=== PATIENT | male | born 1980 | race Caucasian/White ===

== ENCOUNTER 2020-11-10 01:55 | Emergency (ER) | payer BC, OTHER, SELFPAY ==
[~2020-11-10] VITALS: Ht 152.4 cm; Wt 55.0 kg
--- NOTE | 2020-11-10 02:12 | NUR ---
pt was drinking at bar and fell from bar stool and hit head on floor. pt was given cpr by friends for 2-3 seconds when pt awoke. pt has small 2 cm lac to back of head. pt denied any pain. PT A/OX4 BUT SLOW TO RESPOND WITH THE SMELL OF ETOH.
--- NOTE | 2020-11-10 03:26 | NUR ---
PT SLEEPING IN BED, PT ON MONITOR WITH PT VSS
--- NOTE | 2020-11-10 04:30 | NUR ---
PT RESTING IN BED, PT ON MONITOR WITH PT VSS.
--- NOTE | 2020-11-10 07:07 | NUR ---
Took over care of patient, patient up to bathroom with steady gait. errol ayoub.
[2020-11-10 07:45] VITALS: BP 112/67
--- NOTE | 2020-11-10 07:46 | NUR ---
Patient/Caregiver given discharge instructions and they have confirmed that they understand the instructions. Patient ambulatory with steady gait.
== END 2020-11-10 07:47 | disposition home or self-care (01) ==
LOC: ED 07:07
DX: S09.90XA Unspecified injury of head, initial encounter (principal); F10.120 Alcohol abuse with intoxication, uncomplicated; R51.9 Headache, unspecified; X58.XXXA Exposure to other specified factors, initial encounter; Y93.89 Activity, other specified; Y92.89 Other specified places as the place of occurrence of the external cause; Y99.8 Other external cause status; Y90.0 Blood alcohol level of less than 20 mg/100 ml
CPT/HCPCS: 70450; 72125; 99285